=== PATIENT | female | born 1980 | race Caucasian/White ===

== ENCOUNTER → 2020-02-15 | Outpatient (CLI) | payer BC ==
--- NOTE | 2020-02-15 12:38 | US ---
EXAMINATION TYPE: US thyroid st tissue head/neck DATE OF EXAM: 02/15/2020 COMPARISON: NONE CLINICAL HISTORY: R94.6 Abnormal results of thyroid function studies. Abnormal labs. Not on thyroid meds. GLAND SIZE: Right Lobe: 4.9 x 1.9 x 1.8 cm Overall Parenchyma: homogenous Left Lobe: 4.2 x 2.0 x 1.5 cm Overall Parenchyma: homogeneous Isthmus Thickness: 0.3 cm NODULES RIGHT: # of nodules measured on right: 1 1. 0.8 X 0.5 x 0.4 cm hypoechoic nodule at the mid pole with well-defined margins. This nodule is wider than tall and shows intranodular vascularity. Prior size: No prior LEFT: # of nodules measured on left: 0 ISTHMUS: # of nodules measured in the isthmus: 0 Bilateral neck scanned, no evidence of lymphadenopathy. IMPRESSION: Subcentimeter nodule within the right thyroid.
== END | disposition home or self-care (01) ==
LOC: RADUSWWP 12:11
PROVIDERS: ATTEND Family Medicine
DX: E04.1 Nontoxic single thyroid nodule (principal)
CPT/HCPCS: 76536

== ENCOUNTER → 2020-08-16 | Outpatient (CLI) | payer BC ==
--- NOTE | 2020-08-17 09:56 | US ---
EXAMINATION TYPE: US thyroid st tissue head/neck DATE OF EXAM: 08/16/2020 COMPARISON: 02/15/2020 CLINICAL HISTORY: 39-year-old female E04.1 Thyroid Nodule. TECHNIQUE: Multiple sonographic images of the thyroid gland are obtained. FINDINGS: GLAND SIZE: Right Lobe: 5.9 x 1.6 x 1.8 cm Overall Parenchyma: homogenous Left Lobe: 5.4 x 1.3 x 2.2 cm Overall Parenchyma: homogeneous Isthmus Thickness: .3cm NODULES RIGHT: # of nodules measured on right: 1 1. .7X .4 x .7cm solid or almost completely solid, hypoechoic nodule, which is wider than tall, with smooth margins, without echogenic foci. Prior size: .8x .4 x .5cm LEFT: # of nodules measured on left: 0 ISTHMUS: # of nodules measured in the isthmus: 0 Silo Erector notes: Bilateral neck scanned, no evidence of lymphadenopathy. IMPRESSION: 1. Solitary solid nodule in the right lobe measures 7 mm, not significant changed from prior exam. 1. Thyromegaly now apparent; correlate for goiter.
== END | disposition home or self-care (01) ==
LOC: RADUSWWP 16:23
PROVIDERS: ATTEND Family Medicine
DX: E04.1 Nontoxic single thyroid nodule (principal)
CPT/HCPCS: 76536

== ENCOUNTER → 2021-09-15 | Outpatient (CLI) | payer BC ==
--- NOTE | 2021-09-15 08:14 | US ---
EXAMINATION TYPE: US thyroid st tissue head/neck DATE OF EXAM: 09/15/2021 COMPARISON: NONE CLINICAL HISTORY: E04.1 thyroid nodule. Follow up to nodule. GLAND SIZE: Right Lobe: 5.8 x 2.3 x 1.7 cm Overall Parenchyma: homogenous Left Lobe: 5.1 x 2.1 x 1.1 cm Overall Parenchyma: homogeneous Isthmus Thickness: 0.2 cm NODULES RIGHT: # of nodules measured on right: 1 1. 0.7 X 0. 4 x 0.7 cm, mid mid, solid or almost completely solid, hypoechoic nodule, which is wide r than tall, with ill-defined margins, without echogenic foci. Prior size: 0.7 x 0.4 x 0.7 cm LEFT: # of nodules measured on left: 0 ISTHMUS: # of nodules measured in the isthmus: 0 Bilateral neck scanned, no evidence of lymphadenopathy. IMPRESSION: Thyroidomegaly with a stable nonspecific right thyroid nodule. 2017 ACR TI-RADS LEVEL: *Highest TI-RADS level nodule reported
== END | disposition home or self-care (01) ==
LOC: RADUSWWP 07:17
PROVIDERS: ATTEND Family Medicine
DX: E04.1 Nontoxic single thyroid nodule (principal)
CPT/HCPCS: 76536

== ENCOUNTER → 2022-04-21 | Outpatient (CLI) | payer BC ==
--- NOTE | 2022-04-22 11:29 | MM ---
Reason for Exam: Screening (asymptomatic). Last mammogram was performed 2 year(s) and 3 month(s) ago. Patient History: Menarche at age 9. First Full-Term at age 28. Late child-bearing (after 28). Premenopausal. Patient has history of breast feeding. Currently using Hormonal Contraceptives, starting at age 28. Maternal grandmother had breast cancer at or over age 50. Risk Values: Maye 5 year model risk: 1.1%. NCI Lifetime model risk: 14.4%. Prior Study Comparison: 02/05/2014 Bilateral MG screening mammo w CAD - 2, Dayana Goldsmith. 02/26/2017 Bilateral MG screening mammo w CAD - 2, Dayana Goldsmith. 01/19/2020 Bilateral MG 3D screening mammo w/cad, Dayana Goldsmith. Tissue Density: The breast tissue is heterogeneously dense. This may lower the sensitivity of mammography. Findings: Analyzed By CAD. Unchanged asymmetric density medial left CC view, anterior depth. Bilateral regional and grouped microcalcifications remain unchanged. No significant change from prior exams. Overall Assessment: Benign, BI-RAD 2 Management: Screening Mammogram of both breasts in 1 year. 1. Patient should continue monthly self breast exams. 2. A clinical breast exam by your physician is recommended on an annual basis. 3. This exam should not preclude additional follow-up of suspicious palpable abnormalities. Electronically signed and approved by: Kalee Rodriguez M.D. Radiologist
== END | disposition home or self-care (01) ==
LOC: RADMAMWWP 12:25
PROVIDERS: ATTEND Family Medicine
DX: Z12.31 Encounter for screening mammogram for malignant neoplasm of breast (principal)
CPT/HCPCS: 77063; 77067